=== PATIENT | female | born 1955 | race Caucasian/White ===

== ENCOUNTER 2018-07-28 14:36 | Outpatient (CLI) | payer BC ==
--- NOTE | 2018-07-28 16:00 | RAD ---
LUMBAR SPINE 3 VIEWS: HISTORY: M54.5, low back pain. COMPARISON: None. FINDINGS: In the neutral position, there is anterolisthesis of L4 over L5 approximately 4 mm. There is 5 mm an terolisthesis with flexion with decreased listhesis of approximately 3 mm with extension. There appe ars to be advanced facet arthropathy at L3-4, L4-5, and L5-S1. No acute fracture or malalignment. M ild narrowing of the disk space at L3-4 and L4-5. IMPRESSION: Degenerative disk changes as described with grade I anterolisthesis of L4 over L5, likely degenerativ e in nature, with translation with flexion and extension. POS: C
== END 2018-07-28 14:37 | disposition home or self-care (01) ==
LOC: TBSIIMAG 14:36
PROVIDERS: ATTEND Neurological Surgery
DX: M51.16 Intervertebral disc disorders with radiculopathy, lumbar region (principal); M43.16 Spondylolisthesis, lumbar region
CPT/HCPCS: 72100

== ENCOUNTER 2018-09-18 11:00 | Inpatient (IN) | payer BC ==
[2018-09-18 11:55] VITALS: BMI 32.4
[2018-10-01] MEDS ORDERED: Clindamycin/D5W 900 mg/50 ml Premix Bag ONE (06:08)
[2018-10-01] MEDS ORDERED: Levofloxacin 500 mg/D5W 100 ml Premix Bag ONE (06:08)
[2018-10-01] MEDS ORDERED: Bupivacaine HCl 0.5%/Epinephrine 1:200,000/PF 30 ml Vial ONE (06:16)
[2018-10-01] MEDS ORDERED: Sodium Chloride 0.9% 20 ML ONE (06:17)
[2018-10-01] MEDS ORDERED: Thrombin 5000 UNITS/5 ML VIAL ONE (06:17)
[2018-10-01] MEDS ORDERED: PROPOFOL 20 ML ONE (06:23)
[2018-10-01] MEDS ORDERED: Phenylephrine HCL 10 MG/ML VIAL ONE ×3 (06:23→09:20)
[2018-10-01] MEDS ORDERED: Rocuronium Bromide 50 MG/5 ML VIAL ONE ×2 (06:24)
[2018-10-01] MEDS ORDERED: Fentanyl 100 MCG/2 ML VIAL ONE ×2 (06:58→11:39)
[2018-10-01] MEDS ORDERED: Ondansetron HCl/PF 4 MG/2 ML Vial IVP PRN (08:52)
[2018-10-01] MEDS ORDERED: Promethazine HCl 25 MG/ML VIAL SLOW IVP PRN (08:52)
[2018-10-01] MEDS ORDERED: HYDROmorphone 2 MG/ML VIAL SLOW IVP PRN (08:52)
[2018-10-01] MEDS ORDERED: Meperidine HCl/PF 25 MG/ML VIAL SLOW IVP PRN (08:52)
[2018-10-01] MEDS ORDERED: Promethazine HCl 25 MG/ML VIAL IM PRN ×2 (08:52→09:29)
[2018-10-01] MEDS ORDERED: Promethazine 25 MG TAB PO PRN (09:29)
[2018-10-01] MEDS ORDERED: diphenhydrAMINE 50 MG/ML VIAL IVP PRN (09:29)
[2018-10-01] MEDS ORDERED: diphenhydrAMINE 25 MG CAP PO PRN (09:29)
[2018-10-01] MEDS ORDERED: Ondansetron PF 4 MG/2 ML Vial IVP PRN (09:29)
[2018-10-01] MEDS ORDERED: Acetaminophen 325 MG TAB PO PRN (09:29)
[2018-10-01] MEDS ORDERED: Mag-Al 1200 mg/1200 mg/30 ML UDCUP PO PRN (09:29)
[2018-10-01] MEDS ORDERED: Milk Of Magnesia 30 ML UDCUP PO PRN (09:29)
[2018-10-01] MEDS ORDERED: Bisacodyl 10 MG SUPP PR PRN (09:29)
[2018-10-01] MEDS ORDERED: Albumin 5% 500 ML ONE (09:36)
--- NOTE | 2018-10-01 11:33 | HP ---
HISTORY OF PRESENT ILLNESS: This is a 63-year-old female who reports to our office for evaluation of back and left leg pain. The patient states that she has had pain on and off for several years. In the past, injections have helped with her symptoms; however, recently they have not. The patient states that March 14, her symptoms got worse and she started going back for injections. However, she has not had any significant relief following these injections no longer than a few days. The patient has been through physical therapy. Her home exercise program did not have any significant relief as well. The patient states that she has had low back pain along the belt line with numbness and tingling along the L5 distribution on the left. She does have gluteal pain on the right. The patient states that she has worse pain rolling over in bed, bending over, or with any activity. She does get aching, if she stands too long. REVIEW OF SYSTEMS: A 10-point review of systems is negative other than stated in the above HPI. MEDICAL HISTORY: Allergies, chronic pain, depression, glaucoma, thyroid disease. SURGICAL HISTORY: Hysterectomy 2002, left bunion in 2014, left cataract in 1996, vitrectomy in 2010, glaucoma 2012, cataract in the right eye 2015. FAMILY HISTORY: Father is , diagnosed with heart disease. Mother is . Children are alive. SOCIAL HISTORY: The patient is a nonsmoker. Denies alcohol or other illicit drug use. MEDICATIONS: 1. Folic acid. 2. Vitamin B6. 3. Vitamin B12. 4. Prednisone. 5. Wellbutrin. 6. Premarin. 7. Levothyroxine. 8. Prilosec. 9. Multivitamin. 10. Methocarbamol. 11. Meloxicam. 12. Claritin. ALLERGIES: 1. HYDROCODONE. 2. METAXALONE. 3. PENICILLIN. 4. SULFA. 5. . PHYSICAL EXAMINATION: CONSTITUTION: Well-appearing well-nourished, alert. NEUROLOGIC: Awake, alert, oriented x3. Speech spontaneous and fluent. Normal fund of knowledge. Cranial nerves grossly intact. RESPIRATIONS: Normal work of breathing on room air. Lower extremities 5/5 bilateral strength, hip flexion, knee flexion, knee extension, dorsiflexion, plantar flexion, EHL, left L5 radiculopathy. Negative single leg raise bilaterally. Hip rotation, groin pain on the right. Tenderness to palpate lumbar spine and left SI joint. Deep tendon reflexes 1+ patellar bilaterally, 1+ Achilles bilaterally. Negative Babinski. No clonus. SENSORY: Decreased sensation top of left foot. Gait and station: Sit to stand normal. Normal gait. IMAGING: Mild L4-5 listhesis with lateral recess stenosis, unstable on flex-ex. Lumbar back pain with radiculopathy, spondylolisthesis of the lumbar spine. Dr. Amaral has offered a laminectomy at the level of L4-5. The patient has been consented and understands her risks and is willing to proceed with surgery. Job ID: [id number]
[2018-10-01] MEDS ORDERED: Morphine 2 MG/ML SYRINGE SLOW IVP PRN (11:39)
[2018-10-01] MEDS: Morphine 4 MG/ML VIAL SLOW IVP PRN ×2 (14:10→22:49)
[2018-10-01] MEDS: Sodium Chloride 0.9% 1,000 ML IV SCH ×2 (14:12→21:08)
[2018-10-01] MEDS: Clindamycin/D5W 900 MG in Premix Bag 1 BAG IVPB SCH ×2 (16:12→23:24)
--- NOTE | 2018-10-01 19:00 | OP ---
DATE OF PROCEDURE: 10/01/2018 ASSISTANTS: 1. Carla Segura PA-C. 2. Medical student, Arlene White, MS-4. PREOPERATIVE INDICATION: Treat pain and prevent neurological deterioration. PREOPERATIVE DIAGNOSIS: L4-L5 spondylolisthesis with lateral recess and foraminal stenosis. POSTOPERATIVE DIAGNOSIS: L4-L5 spondylolisthesis with lateral recess and foraminal stenosis. OPERATIVE PROCEDURES: 1. Decompressive laminectomy, medial facetectomy, and foraminotomy, L4-L5. 2. Transforaminal lumbar interbody arthrodesis, L4-L5. 3. Placement of intervertebral biomechanical device, L4-L5. 4. Pedicle screw and aly instrumentation, L4-L5. 5. Posterolateral arthrodesis, L4-L5. 6. Local morselized autograft and morselized allograft. PREOPERATIVE MEDICATIONS: Ancef 2 g IV. DRAIN NUMBER: Zero. DRAIN TYPE: None. DESCRIPTION OF PROCEDURE: The patient was brought to the operating room. General endotracheal anesthesia was induced. The patient was carefully positioned on the Juan frame with appropriate padding for the chest and hips. A lateral fluoro radiograph was used to plan our incision. The lumbar skin was sterilely prepped and draped. We opened with a 10 blade knife and controlled bleeding with bipolar and monopolar cautery. We used monopolar cautery to dissect through subcutaneous tissues to the thoracodorsal fascia. We incised the fascia in the midline and reflected the paraspinal muscles off the spinous process and lamina of L4 and L5. A self-retaining retractor was placed, and a lateral fluoro radiograph confirmed the levels upon, which we were operating. We carried our dissection over the facet joints at L3-L4 and L4-L5 to identify the transverse processes of L4 and L5 bilaterally. We irrigated copiously with bacitracin irrigation. An Adson rongeur was used to remove the spinous process of L4 and the superior portion of L5. With a Kerrison rongeur, we opened the laminectomy at L4 and the top of L5, and we widened our laminectomy defect by performing medial facetectomies to decompress the lateral recesses. We followed the nerve roots through the lateral recess and out their respective foramina without impingement at the completion of our decompression. We then turned our attention to arthrodesis. I performed a complete facetectomy on the left L4-L5. Through the foramen, we accessed the intervertebral space at 11 blade knife. We removed disk contents using curettes and rongeurs. We used a bone rasp to prepare the endplates for grafting and measured the height of the interspace. This measured 10 mm. A 10 mm PEEK intervertebral graft was brought into the field. Our laminectomy bone was carefully cleaned of soft tissue attachments, morcellized and added into demineralized bone matrix as our fusion substrate. The substrate was packed in our PEEK graft and the graft was advanced into the interspace under radiographic guidance to the appropriate depth. We turned our attention to pedicle screw instrumentation. Using bony anatomic landmarks, palpation of the medial portion of the pedicles and a lateral fluoro radiograph as our guide, we chose entry points for pedicle screws at L4 and L5 bilaterally. We drilled out our entry point and used a bone awl to create our trajectories. We tapped each trajectory with a threaded tap. A ball probe was used to confirm these trajectory was completely encased in bone. We placed 6.5 mm diameter screws down the pedicles at L4 and L5 bilaterally. A 360-degree image set was generated with our isocentric C-arm, confirming adequate positioning of our instrumentation. We then irrigated copiously with bacitracin irrigation. We decorticated the transverse processes of L4 and L5 bilaterally. We placed rods in the screw heads and tightened caps over the rods. We used gentle compression across the interspace to keep the interbody graft in place, and we tightened caps using a torque/counter-torque mechanism to ensure adequate tightness. Over the decorticated transverse processes, we left demineralized bone matrix and morselized autograft as our posterolateral fusion substrate. We irrigated the center of the wound once again and controlled bleeding with gentle bipolar cautery. We treated the wound with vancomycin powder and we closed in anatomical layers. This was a clean case, no contamination. Job ID: [id number]
--- NOTE | 2018-10-01 20:04 | EKG ---
Test Reason : PREOP Blood Pressure : / mmHG Vent. Rate : 076 BPM Atrial Rate : 076 BPM P-R Int : 194 ms QRS Dur : 076 ms QT Int : 400 ms P-R-T Axes : 036 -11 023 degrees QTc Int : 450 ms Normal sinus rhythm Inferior infarct , age undetermined Abnormal ECG When compared with ECG of 22-OCT-1999 17:25, Inferior infarct is now Present Confirmed by SHMUEL GONZALES, DR. Quiroga ([id number]) on 10/01/2018 8:04:01 PM Referred By: STEVEN Confirmed By:DR. Junaid MI MD
--- NOTE | 2018-10-02 07:22 | PRG ---
DATE OF SERVICE: 10/02/2018 I saw Ms. John in her hospital room this morning. She is one day out from an L4-L5 laminectomy with TLIF. She has done well overnight. She feels as though the numbness in her legs is gone. She is happy with the results of the operation thus far. She wants to work on her mobilization with physical therapy today. Other than mild tachycardia, the vital signs have been stable. I do not find any new neurological deficits in the lower extremities. We will work on mobilization today. When she is safe for activities of daily living, we will discharge her. Job ID: [id number]
[2018-10-02] MEDS: Acetaminophen/Codeine 30-300mg Tablet PO PRN ×2 (08:29→20:34)
[2018-10-02] MEDS: tiZANidine HCl 4 MG TAB PO PRN (20:37)
[2018-10-02] MEDS: Sodium Chloride 0.9% 1,000 ML IV SCH (20:37)
[2018-10-03] MEDS: Acetaminophen/Codeine 30-300mg Tablet PO PRN ×2 (00:12→05:59)
[2018-10-03] MEDS: tiZANidine HCl 4 MG TAB PO PRN (06:00)
[2018-10-03 06:07] VITALS: TEMP 99.6
[2018-10-03] MEDS: Sodium Chloride 0.9% 1,000 ML IV SCH (06:49)
[2018-10-03 07:41] VITALS: BP 89/45
--- NOTE | 2018-10-03 10:01 | DIS ---
DATE OF ADMISSION: 10/01/2018 DATE OF DISCHARGE: 10/03/2018 Ms. John was admitted to [facility] by Dr. Amaral on 10/01/2018 following lumbar laminectomy with TLIF. Her hospital course was uncomplicated. She tolerated her pain and discomfort well and was ultimately discharged home in good condition on 10/03/2018. Hospital consultations ordered to Physical Therapy. No additional imaging or lab work was done. She was discharged in stable condition. Job ID: [id number]
== END 2018-10-03 09:30 | disposition home or self-care (01) | DRG 455 ==
LOC: SURG A 10-01 05:44 → 3SE 10-01 13:56
PROVIDERS: ADMIT Neurological Surgery; ATTEND Neurological Surgery
PROC: 0SG00AJ Fusion of Lumbar Vertebral Joint with Interbody Fusion Device, Posterior Approach, Anterior Column, Open Approach (ICD-10-PCS; principal; 2018-10-01)
PROC: 0SG0071 Fusion of Lumbar Vertebral Joint with Autologous Tissue Substitute, Posterior Approach, Posterior Column, Open Approach (ICD-10-PCS; 2018-10-01)
DX: M48.061 Spinal stenosis, lumbar region without neurogenic claudication (principal); M43.16 Spondylolisthesis, lumbar region; G89.29 Other chronic pain; F32.9 Major depressive disorder, single episode, unspecified; E03.9 Hypothyroidism, unspecified; Z90.710 Acquired absence of both cervix and uterus; Z98.41 Cataract extraction status, right eye; Z79.899 Other long term (current) drug therapy; Z88.0 Allergy status to penicillin; Z88.2 Allergy status to sulfonamides; Z88.8 Allergy status to other drugs, medicaments and biological substances
CPT/HCPCS: 76000; 93005; 93010; C1713; C1768; J0131; J0670; J1956; J2270; J2370; J2405; J2704; J3010; J3370; J3490; P9045

== ENCOUNTER 2018-09-18 11:36 | Outpatient (CLI) | payer BC ==
[2018-09-18 12:27] LABS: Hemoglobin 13.3 g/dL (12.0-16.0); Mean Corpuscular HGB CONC 34.7 g/dL (32.0-36.0); Mean Corpuscular Hemoglobin 31.4 pg (27.0-31.0); Mean Corpuscular Volume 90.3 fL (78.0-98.0); Mean Platelet Volume 7.4 fL (7.4-10.4); Platelet Count 317 thou/uL (130-400); RBC Distribution Width 11.6 % (11.5-14.5); Red Blood Cell (RBC) Count 4.25 mill/uL (4.20-5.40); White Blood Cell (WBC) Count 8.7 thou/uL (4.8-10.8)
[2018-09-18 12:36] LABS: PTT 28.3 SEC (22.9-36.1); Prothrombin Time 12.7 SEC (12.0-14.7)
== END 2018-09-18 11:37 | disposition home or self-care (01) ==
LOC: LABBT 11:36
PROVIDERS: ATTEND Neurological Surgery
DX: Z01.812 Encounter for preprocedural laboratory examination (principal); M54.16 Radiculopathy, lumbar region; M43.16 Spondylolisthesis, lumbar region
CPT/HCPCS: 85027; 85610; 85730

== ENCOUNTER 2018-10-09 16:51 | Emergency (ER) | payer BC ==
--- NOTE | 2018-10-09 17:43 | ULT ---
EXAM: Left lower extremity venous duplex: Deep veins evaluated with color Doppler, spectral analysis, and compression. INDICATIONS: Left lower extremity pain and edema. FINDINGS: Deep veins interrogated include common femoral vein, femoral vein, popliteal vein, and post erior tibial vein. These veins show normal compression and blood flow. No evidence of DVT. IMPRESSION: Negative Left venous duplex exam.
== END 2018-10-09 17:55 | disposition home or self-care (01) ==
LOC: ERS 16:51
DX: M79.89 Other specified soft tissue disorders (principal); K21.9 Gastro-esophageal reflux disease without esophagitis; E03.9 Hypothyroidism, unspecified; F32.9 Major depressive disorder, single episode, unspecified

== ENCOUNTER 2018-11-10 14:18 | Outpatient (CLI) | payer BC ==
--- NOTE | 2018-11-10 15:19 | RAD ---
LUMBAR SPINE 2 VIEWS: HISTORY: Lumbar disk degeneration. COMPARISON: 07/28/2018. FINDINGS: Postop laminectomy, fusion, and pedicle screw placement changes at L4-L5 with intradiskal prosthesis. Generalized spondylosis. No significant malalignment. IMPRESSION: Postoperative changes at L4-L5. POS: OFF
== END 2018-11-10 14:19 | disposition home or self-care (01) ==
LOC: TBSIIMAG 14:18
PROVIDERS: ATTEND Neurological Surgery
DX: M51.36 Other intervertebral disc degeneration, lumbar region (principal); Z98.1 Arthrodesis status
CPT/HCPCS: 72100

== ENCOUNTER 2018-12-17 05:57 | Day surgery (SDC) | payer BC ==
[2018-12-16 12:33] VITALS: BMI 31.8
[2018-12-17] MEDS ORDERED: EPINEPHrine 0.3 MG in Ophthalmic Irrigation Solution 500 ML IVP SCH (06:00)
[2018-12-17] MEDS ORDERED: Cyclopentolate 1% Opth Drop 2 ML BOT ONE (06:08)
[2018-12-17] MEDS ORDERED: Phenylephrine 2.5% Ophth Soln 5 ML BOT ONE (06:09)
[2018-12-17] MEDS ORDERED: Midazolam HCl 2 mg/2 ml Vial ONE (06:40)
[2018-12-17] MEDS ORDERED: Fentanyl 100 MCG/2 ML VIAL ONE (06:40)
[2018-12-17] MEDS ORDERED: PROPOFOL 20 ML ONE (06:47)
--- NOTE | 2018-12-17 07:56 | OP ---
DATE OF PROCEDURE: 12/17/2018 PREOPERATIVE DIAGNOSIS: Vitreous membranes, left eye. POSTOPERATIVE DIAGNOSIS: Vitreous membranes, left eye. PROCEDURES PERFORMED: Pars plana vitrectomy and membrane peel, left eye. ANESTHESIA: Local with monitored anesthesia care. DESCRIPTION OF PROCEDURE: The patient was identified in the preoperative holding area. Appropriate informed consent for the planned surgical procedure on the left eye had been obtained. The patient was transported to the operative suite. Appropriate cardiopulmonary monitoring was established. Local anesthesia was obtained using retrobulbar block modified Van Lint lid block using 50:50 mixture of 4% lidocaine, 0.75% bupivacaine. The patient was prepped and draped in usual sterile manner for ophthalmic surgery of left eye. Lid speculum was placed in the left eye. A 25-gauge trocar was placed through the conjunctivae and sclerae superotemporally, inferotemporally, and supranasally. Infusion line was placed inferotemporally. Light pipe vitreous cutter inserted into the eye. Core vitrectomy was performed. Vitrectomy membranes were peeled from the retina surface, peeled out into the retinal periphery. Indirect ophthalmoscopy was used to examine the retina 360 degrees. No holes, breaks, or tears were identified. Prophylactic laser was placed behind the sclerotomy sites. Trocars were removed. The eye was noted to retain pressure well. Retrobulbar Kenalog and subconjunctival Ancef were placed. The antibiotic ointment was placed. The eye was patched and shielded. The patient was advised to avoid lifting or bending. Keep the patch on. Followup appointment with Dr. Sam. Job ID: [id number]
[2018-12-17] MEDS ORDERED: PROPOFOL 200 MG/20 ML VIAL ONE (15:24)
[2018-12-17] MEDS ORDERED: Bupivacaine 10 ML VIAL ONE (15:24)
[2018-12-17] MEDS ORDERED: CEFAZOLIN 1 GM VIAL ONE (15:24)
[2018-12-17] MEDS ORDERED: Lidocaine 1% PF 5 ML VIAL ONE (15:24)
[2018-12-17] MEDS ORDERED: Triamcinolone 40 MG/ML VIAL ONE (15:24)
[2018-12-17] MEDS ORDERED: Maxitrol 0.1% Opth Oint 3.5 GM TUBE ONE (15:24)
[2018-12-17] MEDS ORDERED: Lidocaine 4% PF 5 ML AMP ONE (15:24)
== END 2018-12-17 08:30 | disposition home or self-care (01) ==
LOC: SDC 05:57
PROVIDERS: ATTEND Ophthalmology Retina Specialist
PROC: 08T53ZZ Resection of Left Vitreous, Percutaneous Approach (ICD-10-PCS; principal; 2018-12-17)
PROC: 08NF3ZZ Release Left Retina, Percutaneous Approach (ICD-10-PCS; principal; 2018-12-17)
DX: H43.312 Vitreous membranes and strands, left eye (principal); Z88.0 Allergy status to penicillin; Z88.2 Allergy status to sulfonamides; Z88.5 Allergy status to narcotic agent
CPT/HCPCS: J0171; J2250; J2704; J3010

== ENCOUNTER 2020-11-17 12:58 | Outpatient (CLI) | payer MEDICARE, BC | END 2020-11-17 12:59 | disposition home or self-care (01) | LOC: BICRAD 12:58 | PROVIDERS: ATTEND Neurological Surgery | DX: M54.16 Radiculopathy, lumbar region (principal); Z98.890 Other specified postprocedural states | CPT/HCPCS: 72110 ==

== ENCOUNTER 2021-02-15 09:14 | Outpatient (CLI) | payer MEDICARE, BC ==
[2021-02-15 10:36] LABS: Hemoglobin 12.2 g/dL (12.0-15.5); Mean Corpuscular HGB CONC 31.7 g/dL (32.0-36.0); Mean Corpuscular Hemoglobin 29.5 pg (27.0-33.0); Mean Platelet Volume 9.6 fl (7.4-10.4); Platelet Count 341 10x3/uL (150-450); RBC Distribution Width 13.2 % (11.5-14.5); Red Blood Cell (RBC) Count 4.14 10x6/uL (3.90-5.03); White Blood Cell (WBC) Count 8.2 10x3/uL (3.5-10.5)
[2021-02-15 11:01] LABS: INR-International Normal Ratio 0.9; PTT 26.9 sec (22.0-33.0); Prothrombin Time 10.2 sec (9.5-12.1)
[2021-02-15 23:10] LABS: SARS-CoV-2 PCR by NAA Not Detected (NotDetected)
== END 2021-02-15 09:15 | disposition home or self-care (01) ==
LOC: LABBT 09:14
PROVIDERS: ATTEND Neurological Surgery
DX: Z01.812 Encounter for preprocedural laboratory examination (principal); M48.061 Spinal stenosis, lumbar region without neurogenic claudication; Z20.822 Contact with and (suspected) exposure to COVID-19
CPT/HCPCS: 85027; 85610; 85730; U0003; U0005

== ENCOUNTER 2021-02-20 05:40 | Inpatient (IN) | payer MEDICARE, BC ==
[2021-02-19 13:27] VITALS: BMI 32.4
[2021-02-20] MEDS ORDERED: Levofloxacin 500 mg/D5W 100 ml Premix Bag ONE (05:58)
[2021-02-20] MEDS ORDERED: Clindamycin/D5W 900 mg/50 ml Premix Bag ONE ×2 (05:59→15:49)
[2021-02-20] MEDS ORDERED: EPINEPHrine 1 MG/ML AMP ONE (06:08)
[2021-02-20] MEDS ORDERED: Thrombin 5000 UNITS/5 ML VIAL ONE (06:08)
[2021-02-20] MEDS ORDERED: Bupivacaine PF 0.5% 30 ML VIAL ONE (06:08)
[2021-02-20] MEDS ORDERED: Neomycin-Polymyxin 1 ML AMP ONE (06:08)
[2021-02-20] MEDS ORDERED: Midazolam HCl 2 mg/2 ml Vial ONE (06:43)
[2021-02-20] MEDS ORDERED: Fentanyl 100 MCG/2 ML VIAL ONE ×2 (06:46→13:02)
[2021-02-20] MEDS ORDERED: PHENYLEPHRINE-NS 100 MCG/ML 10 ML SYRINGE ONE (07:00)
[2021-02-20] MEDS ORDERED: Rocuronium Bromide 10 MG/ML (10ML VIAL) ONE (07:00)
[2021-02-20] MEDS ORDERED: ePHEDrine 50 MG/ML VIAL ONE (07:00)
[2021-02-20] MEDS ORDERED: Vecuronium 10 MG VIAL ONE (07:00)
[2021-02-20] MEDS ORDERED: Dexamethasone 20 MG/5 ML VIAL ONE (07:00)
[2021-02-20] MEDS ORDERED: Ondansetron PF 4 MG/2 ML Vial ONE (07:00)
[2021-02-20] MEDS ORDERED: PROPOFOL 200 MG/20 ML VIAL ONE (07:00)
[2021-02-20] MEDS ORDERED: Lidocaine 1% PF 5 ML VIAL ONE (07:00)
[2021-02-20] MEDS ORDERED: Milk Of Magnesia 30 ML UDCUP PO PRN (07:03)
[2021-02-20] MEDS ORDERED: diphenhydrAMINE 50 MG/ML VIAL IVP PRN (07:03)
[2021-02-20] MEDS ORDERED: Mag-Al 1200 mg/1200 mg/30 ML UDCUP PO PRN (07:03)
[2021-02-20] MEDS ORDERED: Morphine 4 MG/ML VIAL SLOW IVP PRN (07:03)
[2021-02-20] MEDS ORDERED: Bisacodyl 10 MG SUPP PR PRN (07:03)
[2021-02-20] MEDS ORDERED: Promethazine HCl 25 MG/ML VIAL IM PRN ×2 (07:03→12:41)
[2021-02-20] MEDS ORDERED: traMADol HCl 50 MG TAB PO PRN (07:03)
[2021-02-20] MEDS ORDERED: Ondansetron PF 4 MG/2 ML Vial IVP PRN (07:03)
[2021-02-20] MEDS ORDERED: Albumin 5% 500 ML ONE (10:00)
[2021-02-20] MEDS ORDERED: HYDROmorphone 2 MG/ML VIAL ONE (10:40)
[2021-02-20] MEDS ORDERED: SUGAMMADEX SODIUM 200 MG/2 ML VIAL ONE (11:57)
[2021-02-20] MEDS ORDERED: Promethazine HCl 25 MG/ML VIAL IVPB PRN (12:41)
[2021-02-20] MEDS ORDERED: Ondansetron HCl/PF 4 MG/2 ML Vial IVP PRN (12:41)
[2021-02-20] MEDS: Timolol 0.5% Ophth Soln 5 ml Bottle L EYE SCH ×2 (13:30→20:23)
[2021-02-20] MEDS: Brimonidine Tartrate 0.2% Ophth Soln 5 ml Bottle L EYE SCH ×2 (13:30→20:23)
[2021-02-20] MEDS: Sodium Chloride 0.9% 1,000 ML IV SCH ×2 (15:24→18:49)
[2021-02-20] MEDS: Bupropion 100 MG SR TAB PO SCH (16:24)
[2021-02-20] MEDS: Clindamycin/D5W 900 MG in Premix Bag 1 BAG IVPB SCH ×3 (16:24→21:10)
[2021-02-20] MEDS: tiZANidine HCl 4 MG TAB PO PRN (20:07)
[2021-02-20] MEDS: Acetaminophen/Codeine 30-300mg Tablet PO PRN (20:07)
[2021-02-20] MEDS: Loratadine 10 MG TAB PO SCH (20:12)
[2021-02-20] MEDS: Magnesium Oxide 250 MG TAB PO SCH (20:14)
[2021-02-20] MEDS: prednisoLONE 1% Ophth Susp 5 ml Bottle L EYE SCH (20:24)
[2021-02-21] MEDS: Acetaminophen/Codeine 30-300mg Tablet PO PRN ×4 (03:15→20:03)
[2021-02-21] MEDS: tiZANidine HCl 4 MG TAB PO PRN ×3 (03:15→20:03)
[2021-02-21] MEDS: Levothyroxine Sodium 88 MCG TAB PO SCH (06:21)
[2021-02-21] MEDS: Sodium Chloride 0.9% 1,000 ML IV SCH (08:40)
[2021-02-21] MEDS: Timolol 0.5% Ophth Soln 5 ml Bottle L EYE SCH ×2 (08:54→20:13)
[2021-02-21] MEDS: Brimonidine Tartrate 0.2% Ophth Soln 5 ml Bottle L EYE SCH ×3 (08:55→20:13)
[2021-02-21] MEDS: Bupropion 100 MG SR TAB PO SCH (09:10)
[2021-02-21] MEDS: Loratadine 10 MG TAB PO SCH (20:03)
[2021-02-21] MEDS: Magnesium Oxide 250 MG TAB PO SCH (20:03)
[2021-02-21] MEDS: prednisoLONE 1% Ophth Susp 5 ml Bottle L EYE SCH (20:13)
[2021-02-22] MEDS: Sodium Chloride 0.9% 1,000 ML IV SCH (00:39)
[2021-02-22] MEDS ORDERED: Sterile Water 10 ML ONE (01:15)
[2021-02-22] MEDS: Acetaminophen 325 MG TAB PO PRN ×4 (01:22→15:48)
[2021-02-22] MEDS: tiZANidine HCl 4 MG TAB PO PRN (01:24)
[2021-02-22] MEDS: Levothyroxine Sodium 88 MCG TAB PO SCH (05:26)
[2021-02-22 06:16] LABS: Hemoglobin 9.1 g/dL (12.0-16.0)
[2021-02-22] MEDS: Timolol 0.5% Ophth Soln 5 ml Bottle L EYE SCH (10:34)
[2021-02-22] MEDS: Brimonidine Tartrate 0.2% Ophth Soln 5 ml Bottle L EYE SCH (10:37)
[2021-02-22] MEDS: Bupropion 100 MG SR TAB PO SCH (10:39)
[2021-02-22 18:23] VITALS: BP 116/78; TEMP 99.6
== END 2021-02-22 18:16 | DRG 455 ==
LOC: SDC 05:40 → T4-A 07:03
PROVIDERS: ADMIT Neurological Surgery; ATTEND Neurological Surgery
PROC: 0SG00AJ Fusion of Lumbar Vertebral Joint with Interbody Fusion Device, Posterior Approach, Anterior Column, Open Approach (ICD-10-PCS; principal; 2021-02-20)
PROC: 0SG1071 Fusion of 2 or more Lumbar Vertebral Joints with Autologous Tissue Substitute, Posterior Approach, Posterior Column, Open Approach (ICD-10-PCS; 2021-02-20)
PROC: 01NB0ZZ Release Lumbar Nerve, Open Approach (ICD-10-PCS; 2021-02-20)
PROC: 0SP004Z Removal of Internal Fixation Device from Lumbar Vertebral Joint, Open Approach (ICD-10-PCS; 2021-02-20)
DX: M48.062 Spinal stenosis, lumbar region with neurogenic claudication (principal); M43.13 Spondylolisthesis, cervicothoracic region; G89.29 Other chronic pain; F32.A Depression, unspecified; H40.9 Unspecified glaucoma; F41.9 Anxiety disorder, unspecified; E03.9 Hypothyroidism, unspecified; K21.9 Gastro-esophageal reflux disease without esophagitis; I95.9 Hypotension, unspecified; R26.89 Other abnormalities of gait and mobility; Y83.8 Other surgical procedures as the cause of abnormal reaction of the patient, or of later complication, without mention of misadventure at the time of the procedure; Z90.710 Acquired absence of both cervix and uterus; Z98.42 Cataract extraction status, left eye; Z98.41 Cataract extraction status, right eye; Z98.890 Other specified postprocedural states; Z82.49 Family history of ischemic heart disease and other diseases of the circulatory system; Z79.899 Other long term (current) drug therapy; Z79.890 Hormone replacement therapy; Z88.0 Allergy status to penicillin; Z88.2 Allergy status to sulfonamides; Z88.5 Allergy status to narcotic agent
CPT/HCPCS: 36415; 76000; 85014; 85018; C1713; C1768; J0171; J1100; J1170; J1956; J2250; J2405; J2704; J3010; J3370; J3490; P9045; S0020

== ENCOUNTER 2021-05-15 13:13 | Outpatient (CLI) | payer MEDICARE, BC | END 2021-05-15 13:14 | disposition home or self-care (01) | LOC: BICRAD 13:13 | PROVIDERS: ATTEND Neurological Surgery | DX: M43.16 Spondylolisthesis, lumbar region (principal); Z98.890 Other specified postprocedural states | CPT/HCPCS: 72100 ==